=== PATIENT | female | born 1995 | race Caucasian/White ===

== ENCOUNTER 2017-04-16 04:35 | Emergency (ER) | payer OTHER ==
[~2017-04-16] VITALS: Ht 177.8 cm; Wt 68.0 kg
[2017-04-16] MEDS ORDERED: PERCOCET 5MG/325MG TAB PO ONE (05:00)
[2017-04-16] MEDS ORDERED: IBUP80TA PO (06:02)
[2017-04-16 06:07] VITALS: BP 131/86
--- NOTE | 2017-04-16 06:44 | REP ---
Clinical: Trauma. Technique: AP and lateral views of the right forearm. Findings: Lateral view suggests elevation to the anterior and posterior fat pads at the elbow which may reflect occult injury. Correlation with mechanism of injury and point of maximal tenderness is recommended and complete elbow series should be considered if necessary. Remainder examination appears normal. Impression: 1. Elevation to the fat pads at the elbow suggests occult injury and may warrant complete elbow series for further investigation. 2. No other fracture or dislocation identified. Signed by Carson Nevarez MD 04/16/2017 06:35 A
== END 2017-04-16 06:55 | disposition home or self-care (01) ==
LOC: M ED 04:35
DX: S50.01XA Contusion of right elbow, initial encounter (principal); W19.XXXA Unspecified fall, initial encounter; Y92.099 Unspecified place in other non-institutional residence as the place of occurrence of the external cause; Y93.89 Activity, other specified; Y99.8 Other external cause status

== ENCOUNTER → 2017-08-01 | Outpatient (CLI) | payer OTHER ==
[~2017-08-01] MED LIST: IBUP80TA PO
[2017-08-01 19:59] LABS: BASO % 0.2 % (0.0-1.0); EOS # 0.1 10^3/uL (0.0-0.50); EOS % 1.5 % (0.0-3.0); IMMATURE GRANULOCYTE % 0.1 % (0-0); LYMPH # 1.6 10^3/uL (1.5-6.5); MEAN CORPUSCULAR HEMOGLOBIN 30.1 pg (27.0-33.0); MEAN CORPUSCULAR HGB CONC 33.1 g/dl (32.0-36.5); MONO # 0.6 10^3/uL (0.0-0.8); MONO % 6.9 % (0.0-5.0); NEUTROPHILS # 5.7 10^3/uL (1.8-7.7); NEUTROPHILS % 71.3 % (36.0-66.0); PLATELET COUNT, AUTOMATED 280 10^3/uL (150-450); RED CELL DISTRIBUTION WIDTH 12.3 % (11.5-14.5)
[2017-08-03 11:53] LABS: HBsAg Prenatal NEGATIVE (NEGATIVE)
== END ==
LOC: M SMT 11:33
PROVIDERS: ATTEND Obstetrics & Gynecology
DX: Z34.81 Encounter for supervision of other normal pregnancy, first trimester (principal); Z3A.11 11 weeks gestation of pregnancy

== ENCOUNTER → 2017-09-21 | Outpatient (CLI) | payer OTHER ==
--- NOTE | 2017-09-21 17:55 | REP ---
Obstetric ultrasound for anatomy: There is a single intrauterine gestation in a vertex presentation. There is movement and cardiac activity, the heart rate is 147 beats per minute. The placenta is anterior without previa or abruptio. The placenta demonstrates grade zero maturity. The amniotic fluid volume subjectively is normal. The cervix is 4. 3 cm in length. By the ultrasound today gestational age is 19 weeks 0 days with an STEF of 02/15/2018. The LMP is unknown. weight is 299 grams (0 pounds, 10 ounces). This is the 59th percentile for 19 weeks 0 days. The the following anatomic structures are identified and unremarkable: Intracranial lateral ventricles, choroid plexus, cisterna magna, cerebellum, lungs, cardiac left ventricular outflow tract, diaphragm, stomach, cord insertion, three-vessel cord, kidneys, bladder, spine and upper lower extremities. Suboptimally demonstrated are the facial features, four-chamber heart, cardiac right ventricular outflow tract. A followup study dedicated to these structures might be considered. Otherwise, there are no anomalies. Half half Signed by Kenyon Cruz MD 09/21/2017 05:47 P
== END ==
LOC: M SMT 12:41
PROVIDERS: ATTEND Obstetrics & Gynecology
DX: Z34.82 Encounter for supervision of other normal pregnancy, second trimester (principal)

== ENCOUNTER → 2017-10-10 | Outpatient (CLI) | payer OTHER ==
--- NOTE | 2017-10-10 15:04 | REP ---
Clinical: Anatomical evaluation. Comparison: 09/21/2017 . Findings: Examination demonstrates a single live intrauterine in breech presentation. motion is identified by technologist. Placenta is noted anteriorly and grade one without evidence for placenta previa or abruption. Amniotic fluid volume is normal. Cervix measures 4.9 cm in length and appears closed. No evidence for nuchal cord. Gestational age by first US 21 weeks 5 days with STEF 02/15/2018 . Gestational age by current measurements 21 weeks 4 days with STEF 02/16/2018 . FHR equals 144 beats per minute. Estimated weight 468 grams ( 53rd percentile). Anatomical assessment demonstrates normal structures including cranium, choroid plexus, cavum, cerebellum/posterior fossa, facial features, lungs, four-chamber heart/ventricular outflow tracts, diaphragm, stomach, cord insertion/three-vessel cord, kidneys/bladder, spine, and extremities. Impression: Single live intrauterine in breech presentation demonstrating appropriate interval growth. In conjunction with prior examination anatomical assessment is complete and normal. No gross abnormalities are identified. Signed by Carson Nevarez MD 10/10/2017 02:56 P
== END ==
LOC: M SMT 13:38
PROVIDERS: ATTEND Obstetrics & Gynecology
DX: Z34.82 Encounter for supervision of other normal pregnancy, second trimester (principal); Z3A.21 21 weeks gestation of pregnancy

== ENCOUNTER → 2017-11-26 | Outpatient (CLI) | payer OTHER ==
[2017-11-26 14:13] LABS: HEMATOCRIT 38.6 % (36.0-47.0); MEAN CORPUSCULAR HGB CONC 33.7 g/dl (32.0-36.5); MEAN CORPUSCULAR VOLUME 91.9 fl (80.0-96.0); PLATELET COUNT, AUTOMATED 238 10^3/uL (150-450); RED CELL DISTRIBUTION WIDTH 13.2 % (11.5-14.5); WHITE BLOOD COUNT 9.9 10^3/uL (4.0-10.0)
[2017-11-26 14:33] LABS: GLUCOSE CHALLENGE TEST 1 HOUR 117 MG/DL (LESS THAN 140)
== END ==
LOC: M SMT 09:57
DX: Z36.9 Encounter for antenatal screening, unspecified (principal)
CPT/HCPCS: 82950

== ENCOUNTER → 2018-12-10 | Outpatient (CLI) | payer OTHER ==
[~2018-12-10] MED LIST changes: +COLA100C5 PO; +IBUP-1114 PO; +MAPA500T2 PO; +MOM30SS PO; +PRENTAB9 PO
--- NOTE | 2018-12-10 11:19 | REP ---
Clinical: Twin gestation. Comparison: None available . Findings: Examination demonstrates diamniotic monochorionic twin gestation. Placenta identified in the left lateral fundal and grade II. Cervix measures 3.3 cm in length and appears closed. Gestational age by LMP at 32 weeks 5 days with estimated date of delivery 01/30/2019. TWIN A: Twin A identified in cephalic presentation along the midline. motion is appreciated. Amniotic fluid volume is normal and the deepest pocket measures 3.1 cm. FHR equals 163 beats per minute. BPD 8.0 cm 31 weeks 6 days HC 29.7 cm 32 weeks 6 days AC 25.2 cm 29 weeks 3 days (less than 5th percentile) FL 5.7 cm 30 weeks 0 days HL 5.1 cm 29 weeks 6 days (less than 5th percentile) HC/AC ratio 1.18 Gestational age by current measurements: 30 weeks 6 days . Estimated weight 1514 grams ( less than 3rd percentile). Limited anatomical assessment without obvious abnormality. Umbilical cord SD ratio 3.15 ------- TWIN B: Twin B identified in cephalic presentation along the maternal left side. motion is appreciated. Amniotic fluid volume is normal and the deepest pocket measures 3.9 cm. FHR equals 150 beats per minute. BPD 8.0 cm 32 weeks 1 day HC 29.5 cm 32 weeks 4 days AC 27.4 cm 31 weeks 4 days FL 6.0 cm 31 weeks 1 day HL 5.3 cm 30 weeks 6 days HC/AC ratio 1.07 Gestational age by current measurements: 31 weeks 4 days. Estimated weight 1788 grams ( 22nd percentile). Limited anatomical assessment without obvious abnormality. Umbilical cord SD ratio 2.26 Impression: Diamniotic monochorionic twin gestation demonstrating discordant growth with twin A measuring at less than 3rd percentile and 2 weeks behind twin B. Electronically Signed by Carson Nevarez MD 12/10/2018 11:11 A
== END ==
LOC: M RAD 09:29
PROVIDERS: ATTEND Obstetrics & Gynecology
DX: O30.033 Twin pregnancy, monochorionic/diamniotic, third trimester (principal); O36.5931 Maternal care for other known or suspected poor fetal growth, third trimester, fetus 1; Z3A.30 30 weeks gestation of pregnancy; Z3A.31 31 weeks gestation of pregnancy

== ENCOUNTER 2019-01-07 02:02 | Inpatient (IN) | payer OTHER ==
[~2019-01-07] VITALS: Ht 175.3 cm; Wt 101.6 kg
[2019-01-07] VITALS (28 sets, daily range): BP systolic 81–201; BP diastolic 50–108
[2019-01-07] MEDS ORDERED: LR 1,000 ML IV SCH (03:30)
[2019-01-07] MEDS ORDERED: LACTATED RINGER'S 1000 ML IV STA (03:30)
[2019-01-07] MEDS ORDERED: BETAMETHASONE SOLUSPAN 6MG/ML INJ 5ML (J0702) IM SCH (03:45)
--- NOTE | 2019-01-07 03:51 | HPEPDOC ---
Obstetrical History & Physical General Date of Admission Jan 07, 2019 at 03:11 History of Present Illness 23 yo at 36+5 weeks gestation by 15+0 week US on 08Aug2018 with mono/di twins presents to L&D with the complaint of a large gush of fluid at ~0130 followed by continuous leakage ever since. Fluid was clear. She denies any vaginal bleeding. She endorses intermittent contractions and excellent movement. She was scheduled for an IOL vs PLTCS today depending of presentation. Chief Complaint: LOF, pre-term Information Provided By: Patient Age: 23 : 2 Term: 1 Pre-term: 0 Abortions: 0 Livin Care Care: Good Care Dating Final EDC: Jan 30, 2019 Final EDC for Daily Update: Jan 30, 2019 Final EDC by: 2nd trimester (US) (15+0 week US on 08Aug2018 set STEF of 30Jan2019) Antepartum Course Diagnos(e)s [place]/Di twins short interval (has child less than 1 year old) Past Medical History Past Obstetrical History : Past Obstetrical History: Multigravida Type of Delivery: Spontaneous Vaginal Del. ( in 2018 of 8 lb ) Complications: No SHIPYARD HELPER History: No pertinent history Past Medical History Medical History Denies Surgical History: Other (Elbow surgery (screws inserted)) Family History Significant Family History: No pertinent family hx Social History Marital Status: Family situation: Spouse/partner home Psychosocial History: No pertinent psych hx * Smoker: non-smoker Alcohol: Denies Drugs: denies Imunizations Tdap status: current Influenza Status: needs Allergies Coded Allergies: No Known Allergies (Unverified , 12/31/18) Medications Scheduled Multivitamins/ ( 27-0.8 mg) 1 Tab Tab, 1 TAB PO DAILY Scheduled PRN Docusate Sodium (Colace) 100 Mg Cap, 100 MG PO QHSP PRN for CONSTIPATION Physical Examination Physical Examination Chaperoned by L&D RN GENERAL: Alert and oriented times three. ABDOMEN: Gravid and non-tender to touch. FETUS: Is vertex (VTX) by sterile vaginal examination (SVE) EXTREMITIES: No edema. Pelvic - Grossly ruptured membranes, clear fluid Bedside TAUS - Twin gestation. Baby A cephalic presentation. Baby B cephalic presentation. Laboratory Data 24H LABS Laboratory Tests 2 01/07/19 03:14: Serology Scanned Report Hepatitis B Testing Urine Culture: No Growth Pertinent Laboratoy Data Blood Type: A+ RBC Antibody Screen: Negative HIV: Negative Hepatitis B: Negative Hepatitis C: Unknown Rapid Plasma Reagin: Nonreactive Rubella: Immune Varicella: Unknown Chlamydia/Gonorrhea: Negative Group B Streptococcus: Negative Quad Screen Test: Unknown Cystic Fibrosis: Unknown Glucose Tolerance Test: 98 Anatomy Ultrasound Placenta Location: Anterior Normal Anatomy: Yes ([place]/Di twins) Placenta Previa: No Other Ultrasounds 03Jan2019: [place]/Di twins. Baby A cephalic with EFW 2238 grams (12th percentile) Baby B cephalic with EFW 2480 grams (25th percentile) Anterior placenta Steroid Therapy Steroid Therapy: No Vaginal Examination Dilation: 2cm Effacement: 80% Station: -2 Cervical Consistency: Soft Cervical Position: Posterior Presentation: Cephalic presentation Position: Vertex (occiput) Assessment Heart Rate (FHR): 140 (Baby A 145, Baby B 140) Variability: Moderate Accelerations: Positive Decelerations: None Tocometer Contractions: Yes Frequency: irregular Duration: less than 60 seconds Strength: palpated as mild Assessment/Plan Assessment 23 yo at 36+5 weeks with mono/di twins presented to L&D with grossly ruptured membranes. Plan Admit for expectant management of labor. Will augment as clinically indicated. Apply IV fluids. Cephalic presentation for both Baby A and Baby B on admission US. Good candidate for vaginal delivery. GBS negative. Will give dose of BTMZ. Patient may have epidural if desired. Delivery will occur in the OR. Counseled patient on possibility of emergent section on one or both infants pending positional changes or distress. All patient questions answered. Oscar Bethea, DO Labor and Delivery Counseling /VAVD/FAVD counseling Deliver your babies through the vagina with possible assistance of forceps or vacuum device if needed for maternal or indications. Forceps and vacuum are devices that can assist with vaginal delivery when normal pushing efforts cannot achieve delivery on their own or when delivery is needed in an emergency for baby's well-being. Medications may be required to induce or augment (help) your labor in order to achieve a vaginal delivery. An episiotomy may be required to help your babies to deliver vaginally. You may also require repair of any lacerations or tears of your vagina or vulva that are caused by delivery. In some cases, emergencies can occur that require an emergency section delivery so quickly that there may not be enough time to stop and complete consent forms for section. Understand that if this occurs, your providers will discuss the need for a section with you before they proceed with surgery. section is the delivery of your babies through an incision in your abdomen. In some situations, section may be safer to mom and baby than continuing labor and is only performed when clinically indicated. Risks of vaginal delivery include but are not limited to: Bleeding, infection, injury to the vagina, pelvic structures, injury to baby, damage to the uterus, reactions to anesthesia, uterine rupture, risk of hysterectomy for life threatening bleeding, or . Medications used to induce or augment labor may increase your risk for infection, uterine tachysystole, uterine rupture, heart rate abnormalities, need for emergency delivery or possible hysterectomy, and hemorrhage. Additional risks for use of forceps and vacuum include: increased risk of perineal and vaginal lacerations, risk of urinary or bowel incontinence, increased risk of injury to baby with bruising, scratches, hematomas on the head, or intracranial bleeding. Ms. Abreu verbalized understanding of these risks and elected to proceed. She also consents to a blood transfusion should it be required. DO DAVID Hamlin CHRISTOPHER J. DO Jan 07, 2019 03:51
[2019-01-07 04:28] LABS: HEMATOCRIT 36.4 % (36.0-47.0); HEMOGLOBIN 12.1 g/dl (12.0-15.5); MEAN CORPUSCULAR HEMOGLOBIN 28.9 pg (27.0-33.0); MEAN CORPUSCULAR HGB CONC 33.2 g/dl (32.0-36.5); MEAN CORPUSCULAR VOLUME 87.1 fl (80.0-96.0); PLATELET COUNT, AUTOMATED 236 10^3/uL (150-450); RED BLOOD COUNT 4.18 10^6/uL (4.00-5.40); WHITE BLOOD COUNT 12.3 10^3/uL (4.0-10.0)
[2019-01-07] MEDS ORDERED: FENTANYL 2MCG/ML ROPIVACAINE 0.2% IN 0.9% NACL 100ML IVBAG As Ordered ONE (04:50)
--- NOTE | 2019-01-07 05:17 | IPNPDOC ---
Text Note Date of Service The patient was seen on 01/07/19. NOTE Patient feeling significantly more pain and pressure. Cervix: 490/-1. Some difficulty tracing both babies on monitor. Bedside TAUS revealed baby A with FHR in 160s and Baby B with FHR 140s. Patient desires epidural. Anesthesia notified. OR setup for delivery as Ms. Abreu is progressing quickly. Safe to proceed. DO [place] VS,[place], I+O VS, [place], I+O Laboratory Tests 01/07/19 03:09 Red Blood Count 4.18, Mean Corpuscular Volume 87.1, Mean Corpuscular Hemoglobin 28.9, Mean Corpuscular Hemoglobin Concent 33.2, Red Cell Distribution Width 13.2 Vital Signs Date Time Temp Pulse Resp B/P (MAP) Pulse Ox O2 Delivery O2 Flow Rate FiO2 01/07/19 05:08 98.5 113 20 128/82 (97) ANNA HERNANDEZ DO Jan 07, 2019 05:17
[2019-01-07] MEDS ORDERED: OXYTOCIN DRIP 30 UNITS in APPROPRIATE DILUENT 1 EA IV SCH (07:20)
[2019-01-07] MEDS ORDERED: MEASLES,MUMPS,RUBELLA VACCINE INJ (MMR-II) (90707) SC SCH (07:30)
[2019-01-07] MEDS ORDERED: METHYLERGONOVINE MALEATE 0.2 MG/ML VIAL (J2210) IM ONE (07:30)
[2019-01-07] MEDS ORDERED: ONDANSETRON 4MG/2ML VIAL (J2405) IV PRN ×2 (07:30→08:15)
[2019-01-07] MEDS ORDERED: DIBUCAINE 1% OINTMENT 30GM TOP PRN (07:30)
[2019-01-07] MEDS ORDERED: DOCUSATE SODIUM 100 MG CAP PO PRN (07:30)
[2019-01-07] MEDS ORDERED: RHOGAM 300 MCG (1500 IU) INJ (J2790) IM SCH (07:30)
--- NOTE | 2019-01-07 07:43 | DNPDOC ---
[facility] Delivery Note Delivery Note DATE OF DELIVERY: 07Jan2019, Baby A at 0639, Baby B at 0654 PREDELIVERY DIAGNOSIS: 36+5 weeks' gestation and labor with mono/di twins POST DELIVERY DIAGNOSIS: Delivered. PROCEDURE: Spontaneous vaginal delivery X2 of mono/di twins. CREDIT REVIEW OFFICER: Dr. Bethea ANESTHESIA: Epidural. ESTIMATED BLOOD LOSS: 300 mL. FINDINGS: Baby A - 5 pound, 0 ounce female , Score 9/9. Baby B - weight pending, score 8/9, nuchal cord X1. DELIVERY SUMMARY: Presented to room for assessment after epidural placement. Ms. Abreu was comfortable but was feeling constant vaginal pressure. Cervix AL/C/+1. She was taken to the OR for delivery. NICU and anesthesia were notified and the team was assembled. She was placed on the OR table with her feet up in stirrups. She was then prepped for delivery. Cervical exam revealed C/C/+2. With excellent pushing effort Baby A delivered. Presentation was SUSANA with restitution to LOT. The right anterior shoulder delivered with gentle guidance followed easily by the remainder of the body. The infant was dried and stimulated on the field and a bulb suction was used. The infant cried vigorously. I then cut the three vessel umbilical cord and handed the infant to the care of the awaiting baby nurse team. The FHR was determined on Baby B to be in the 140s and there was moderate variab ility. Cervical exam was C/C/0. There was a bulging bag of water. AROM was performed productive of a copious amount of clear fluid. She began pushing again. She pushed very well. Over 5 sets of contractions her delivered. Presentation was RENATO with restitution to ROT. The left anterior shoulder delivered with gentle guidance followed easily by the remainder of the body. There was a nuchal cord that was delivered through and reduced manually. The infant was dried and stimulated on the field and cried spontaneously. I then clamped and cut the three vessel cord and handed over the to the awaiting baby nurse team. 3rd stage was completed with gentle traction on the cord and it was productive of an intact, fused appearing placenta. The uterus was initially boggy and required an aggressive bimanual massage to become firm. 0.2mg IM methergine was then administered. A uterine sweep was then performed which expelled numerous clots. The bladder was then drained of ~300ml of urine with a straight cath. The fundus then become firm and bleeding slowed considerably. Inspection of the vagina, perineum, and cervix revealed no lacerations. Sponge, instrument, and needle counts were correct X2. Mother stable when I left the room. DO DAVID Hamlin CHRISTOPHER J. DO Jan 07, 2019 07:43
[2019-01-07 07:59] LABS: CORD GAS ABE A -6.3; CORD GAS HCO3 A 23.9 MEQ/L; CORD GAS O2 SAT A 62.4 %; CORD GAS PH A 7.171 UNITS; CORD GAS PO2 A 32.3 mmHg; CORD GAS SBC A 18.6 MEQ/L
[2019-01-07 08:00] LABS: CORD GAS ABE V -5.9; CORD GAS HCO3 V 20.8 MEQ/L; CORD GAS O2 SAT V 61.8 %; CORD GAS PCO2 V 44.9 mmHg; CORD GAS PH V 7.283 UNITS; CORD GAS PO2 V 28.7 mmHg; CORD GAS SBC V 18.8 MEQ/L; CORD GAS TCO2 V 22.1 MEQ/L
[2019-01-07] MEDS ORDERED: diphenhydrAMINE INJ 50MG/ML VIAL (J1200) IV PRN (08:15)
[2019-01-07] MEDS ORDERED: EPIDURAL COMMENT XX SCH (08:15)
[2019-01-07] MEDS ORDERED: LACTATED RINGER'S 1000 ML IV PRN (08:15)
[2019-01-07] MEDS ORDERED: ePHEDrine SULFATE 25 MG/5 ML(5MG/ML) SYRINGE IV PRN (08:15)
[2019-01-07] MEDS ORDERED: FENTANYL/ROPIVACAINE/NACL BAG 100 ML EPIDURAL SCH (08:15)
[2019-01-07] MEDS ORDERED: EPIDURAL/PCA KEYS XX PRN (08:15)
[2019-01-07] MEDS ORDERED: REFRIGERATOR IV KEYS XX PRN (08:15)
[2019-01-07] MEDS ORDERED: NALOXONE INJ 0.4 MG/1 ML VIAL (J2310) IV PRN (08:15)
[2019-01-07] MEDS: PRENATAL VITAMINS CHEWABLE TABLET PO SCH (09:00)
[2019-01-07] MEDS: IBUPROFEN 800 MG TAB PO PRN ×2 (12:19→22:47)
[2019-01-07] MEDS: ACETAMINOPHEN 500 MG TAB PO PRN (13:23)
[2019-01-08] MEDS: ACETAMINOPHEN 500 MG TAB PO PRN ×2 (04:00→20:46)
[2019-01-08 06:44] VITALS: BP 126/81
[2019-01-08] MEDS: PRENATAL VITAMINS CHEWABLE TABLET PO SCH (09:02)
--- NOTE | 2019-01-08 14:19 | IPN ---
DATE: 01/08/2019 23-year-old, 2m now para 3 admitted at 36 of 5 weeks with spontaneous labor with monochorionic diamniotic twins. She had a spontaneous vaginal delivery times two of monochorionic diamniotic twins. Twin A was female 5 pounds, 2070 grams, of 9 and 9 at one and five minutes respectively. Twin B was female 6 pounds 1 ounce, 2750 grams, of 8 and 9 at one and five minutes respectively. She had an epidural in place. On her first day we discussed phlebitis, cystitis, mastitis, endometritis, cellulitis, diet, excise pain management, perineal, breast and wound care. Blood pressure 125/71, respirations 70, pulse 66, temperature is 97.4. Admitting hemoglobin 12.1, hematocrit 36.4 and platelets were 236. In summary we have a 36 and 5 in active labor, delivered spontaneously monochorionic diamniotic twins, uncomplicated.
[2019-01-08] MEDS: IBUPROFEN 800 MG TAB PO PRN (16:18)
[2019-01-08 18:00] VITALS: BP 126/82
[2019-01-09 06:00] VITALS: BP 143/83
--- NOTE | 2019-01-09 07:12 | IPNPDOC ---
Progress Note Date of Service: Jan 09, 2019 Day#: 2 Progress Note PPD 2 SUBJECT: Magui Baldwin is a 23yo [id number] s/p uncomplicated of mono-di twins at 36w5d on 01/07/19, doing well day # 2. She has been ambulating, voiding spontaneously without issue and tolerating regular diet. Breast pumping without issue. Reports lochia is like a normal period. No f/c/n/v/CP/SOB. OBJECTIVE: VITAL SIGNS: Within normal limits, afebrile. Alert and oriented times three. Abdomen: Fundus firm at U-2. Soft, NTTP. ASSESSMENT: Magui Baldwin is a 23yo [id number] s/p uncomplicated of mono-di twins at 36w5d on 01/07/19, doing well day # 2. Vitals within normal limits, afebrile, hemodynamically stable with no evidence of infection. PLAN: 1. Discharge to home today. 2. Tylenol and Motrin for pain. 3. Encourage breast feeding and ambulation. 4. Interested in minipill, will discuss again at PP visit, advised 6wk vaginal rest but if she has intercourse prior, use of condoms 5. Routine PP visit in 6 weeks in clinic. 6. Discussed return precautions at length. Dr. Geri Frey MD VS, I&O, 24H, Fishbone Vital Signs/I&O Vital Signs Date Time Temp Pulse Resp B/P (MAP) Pulse Ox O2 Delivery O2 Flow Rate FiO2 01/09/19 06:00 97.9 73 18 143/83 (103) 01/08/19 18:00 98 Geri Frey MD Jan 09, 2019 07:12
[2019-01-09] MEDS: PRENATAL VITAMINS CHEWABLE TABLET PO SCH (09:14)
[2019-01-09] MEDS ORDERED: DIBU10OI TOP (10:31)
[2019-01-09] MEDS ORDERED: APAP500T10 PO (10:33)
[2019-01-09] MEDS ORDERED: IBUP-359 PO (10:34)
== END 2019-01-09 11:40 | disposition home or self-care (01) | DRG 807 ==
LOC: M LDO 02:02 → M LDI 03:11 → M OBS 11:55
PROVIDERS: ADMIT Obstetrics & Gynecology; ATTEND Obstetrics & Gynecology
PROC: 10E0XZZ Delivery of Products of Conception, External Approach (ICD-10-PCS; principal; 2019-01-07)
PROC: 10907ZC Drainage of Amniotic Fluid, Therapeutic from Products of Conception, Via Natural or Artificial Opening (ICD-10-PCS; 2019-01-07)
DX: O30.033 Twin pregnancy, monochorionic/diamniotic, third trimester (principal); Z37.2 Twins, both liveborn; Z3A.36 36 weeks gestation of pregnancy; O69.81X2 Labor and delivery complicated by cord around neck, without compression, fetus 2; O75.89 Other specified complications of labor and delivery

== ENCOUNTER → 2021-03-15 | Outpatient (CLI) | payer OTHER ==
[~2021-03-15] MED LIST changes: +APAP500T10 PO; +DIBU28OI2 TOP; +IBUP-359 PO
--- NOTE | 2021-03-15 08:54 | REP ---
INDICATION: LT BREAST PAIN X SEVERAL MONTHS. COMPARISON: None TECHNIQUE: Multiple ultrasonographic images of the left breast retroareolar region were obtained over the area where the patient complains of focal pain. FINDINGS: There are no cystic or solid masses. IMPRESSION: ACR category 2 benign focal left breast ultrasound exam as described above. There is no evidence of malignant alteration. A negative ultrasound exam should never curtail biopsy of a clinically palpable mass or clinically suspicious area of the breast. <Electronically signed by Yossi Khan > 03/15/21 [id number]
== END ==
LOC: M WHC 06:43
PROVIDERS: ATTEND Family Medicine
DX: N64.4 Mastodynia (principal)

== ENCOUNTER → 2021-06-16 | Outpatient (CLI) | payer OTHER ==
--- NOTE | 2021-06-16 15:41 | REP ---
INDICATION: DIAG R BREAST LUMP; RIGHT BREAST LUMP. Tenderness with movement. COMPARISON: No comparison right breast imaging. TECHNIQUE: A skin marker is affixed to the skin at the site of the palpable abnormality and a routine views are augmented by 3D tomography and magnified focal spot-compression images. Targeted right breast sonography is performed. This mammogram was interpreted with the aid of an FDA-approved computer-aided detection system. FINDINGS: The breast parenchyma is predominantly fat replaced. There is no mammographic evidence of right breast mass lesion. No architectural distortion or worrisome skin changes seen. No microcalcification is observed. The Volpara volumetric breast density pattern is a. Targeted ultrasound: Targeted right breast sonography is performed the site of the palpable lump at the 12 o'clock position. A lobule of hyperechoic fat is seen just beneath the dermis at the site of the palpable lump. There is a cystic area within this. Overall, this hyperechoic area measures 1.8 x 1.1 x 1.8 cm. It is located 4.5 cm from the nipple. IMPRESSION: BIRADS/ACR category 3 probably benign right breast mammographic and sonographic findings. Combination of mammographic and sonographic findings are felt to be most compatible with a small area of fat necrosis or inflamed subcutaneous fat. This patient's Tyrer-Cuzick lifetime breast cancer risk assessment score is 10.2%. RECOMMENDATION: Follow-up right breast ultrasound in 6 months time. Sooner, if clinical signs and symptoms progress. The patient letter being requested is M 3. <Electronically signed by Maninder Rodríguez > 06/16/21 [id number]
== END ==
LOC: M WHC 13:56
PROVIDERS: ATTEND Family Medicine
DX: Z12.31 Encounter for screening mammogram for malignant neoplasm of breast (principal)

== ENCOUNTER → 2022-11-30 | Outpatient (REF) | payer OTHER | LOC: M SFHCDERM 12:27 | PROVIDERS: ATTEND Nurse Practitioner Family | DX: D23.5 Other benign neoplasm of skin of trunk (principal) ==

== ENCOUNTER → 2022-12-28 | Outpatient (CLI) | payer OTHER | LOC: M RAD 08:55 | PROVIDERS: ATTEND Nurse Practitioner Family | DX: R07.9 Chest pain, unspecified (principal); M25.662 Stiffness of left knee, not elsewhere classified ==

== ENCOUNTER → 2023-01-15 | Outpatient (REF) | payer OTHER ==
[2023-01-15 18:35] LABS: TOTAL 25(OH) VITAMIN D 21.3 NG/ML (20.0-100.0)
[2023-01-15 18:37] LABS: ALBUMIN 3.9 G/DL (3.2-5.2); ALKALINE PHOSPHATASE 83 U/L (46-116); ALT/SGPT 20 U/L (7.0-40); AST/SGOT < 8 U/L (<34); BILIRUBIN,TOTAL 0.3 MG/DL (0.3-1.2); BLOOD UREA NITROGEN 9 MG/DL (9-23); CALCIUM LEVEL 9.1 MG/DL (8.5-10.1); CARBON DIOXIDE LEVEL 27 MMOL/L (20-31); CHLORIDE LEVEL 109 MMOL/L (98-107); CHOLESTEROL LEVEL 135 MG/DL (<200); CHOLESTEROL RISK RATIO 3.12 (<5); CREATININE FOR GFR 0.59 MG/DL (0.55-1.30); GLOMERULAR FILTRATION RATE > 60.0 (>60); GLUCOSE, FASTING 111 MG/DL (60-100); HDL CHOLESTEROL 43.2 MG/DL (>40); NON-HDL-C 91.8 MG/DL; POTASSIUM SERUM 4.1 MMOL/L (3.5-5.1); SODIUM LEVEL 142 MMOL/L (136-145); TOTAL PROTEIN 6.2 G/DL (5.7-8.2); TRIGLYCERIDES LEVEL 139 MG/DL (<150)
[2023-01-15 18:40] LABS: BASO % 0.4 % (0.0-1.0); EOS # 0.2 10^3/uL (0.0-0.5); HEMATOCRIT 43.4 % (36.0-47.0); HEMOGLOBIN 14.2 g/dl (12.0-15.5); LYMPH # 2.3 10^3/uL (1.5-5.0); LYMPH % 31.3 % (24.0-44.0); MEAN CORPUSCULAR HEMOGLOBIN 29.2 pg (27.0-33.0); MEAN CORPUSCULAR HGB CONC 32.7 g/dl (32.0-36.5); MEAN CORPUSCULAR VOLUME 89.1 fl (80.0-96.0); MONO # 0.6 10^3/uL (0.0-0.8); MONO % 8.4 % (2.0-8.0); NEUTROPHILS # 4.1 10^3/uL (1.5-8.5); NEUTROPHILS % 56.6 % (36.0-66.0); PLATELET COUNT, AUTOMATED 346 10^3/uL (150-450); RED BLOOD COUNT 4.87 10^6/uL (4.00-5.40); WHITE BLOOD COUNT 7.3 10^3/uL (4.0-10.0)
== END ==
LOC: M LAB REF 16:21
PROVIDERS: ATTEND Nurse Practitioner Family
DX: Z13.228 Encounter for screening for other metabolic disorders (principal)

== ENCOUNTER → 2023-05-28 | Outpatient (REF) | payer MEDICAID | LOC: M LAB REF 10:19 | PROVIDERS: ATTEND Internal Medicine Gastroenterology | DX: R19.4 Change in bowel habit (principal) ==

== ENCOUNTER → 2023-05-28 | Outpatient (CLI) | payer MEDICAID, MEDICARE, OTHER ==
[2023-05-28 10:07] LABS: IMMUNOGLOBULIN A 163.9 MG/DL (40-350)
[2023-05-28 10:08] LABS: FREE T4 1.31 NG/DL (0.89-1.76)
[2023-05-28 10:09] LABS: THYROID STIMULATING HORMONE 0.964 uIU/ML (0.55-4.78)
== END ==
LOC: M LAB 09:08
PROVIDERS: ATTEND Internal Medicine Gastroenterology
DX: R19.4 Change in bowel habit (principal)

== ENCOUNTER → 2024-01-08 | Outpatient (CLI) | payer OTHER ==
[~2024-01-08] MED LIST changes: +CAMILA PO
== END ==
LOC: M PLAIMG 10:44
PROVIDERS: ATTEND Psychiatry & Neurology Neurology
DX: G43.119 Migraine with aura, intractable, without status migrainosus (principal)

== ENCOUNTER → 2024-02-25 | Outpatient (REF) | payer OTHER ==
[2024-02-25 13:10] LABS: BASO # 0.1 10^3/uL (0.0-0.2); BASO % 0.6 % (0.0-1.0); EOS # 0.3 10^3/uL (0.0-0.5); EOS % 3.3 % (0.0-3.0); HEMATOCRIT 43.3 % (36.0-47.0); HEMOGLOBIN 14.8 g/dl (12.0-15.5); LYMPH # 2.4 10^3/uL (1.5-5.0); LYMPH % 29.5 % (24.0-44.0); MEAN CORPUSCULAR HEMOGLOBIN 30.9 pg (27.0-33.0); MEAN CORPUSCULAR HGB CONC 34.2 g/dl (32.0-36.5); MEAN CORPUSCULAR VOLUME 90.4 fl (80.0-96.0); MONO # 0.6 10^3/uL (0.0-0.8); NEUTROPHILS # 4.7 10^3/uL (1.5-8.5); NEUTROPHILS % 59.2 % (36.0-66.0); PLATELET COUNT, AUTOMATED 339 10^3/uL (150-450); RED BLOOD COUNT 4.79 10^6/uL (4.00-5.40)
[2024-02-25 13:27] LABS: HEMOGLOBIN A1c 4.9 % (4.0-6.0)
[2024-02-25 13:38] LABS: THYROID STIMULATING HORMONE 1.783 uIU/ML (0.55-4.78); TOTAL 25(OH) VITAMIN D 21.4 NG/ML (20.0-100.0)
[2024-02-25 13:42] LABS: ALBUMIN 3.9 G/DL (3.2-5.2); ALKALINE PHOSPHATASE 75 U/L (46-116); ALT/SGPT 25 U/L (7.0-40); AST/SGOT 13 U/L (<34); BILIRUBIN,TOTAL 0.6 MG/DL (0.3-1.2); BLOOD UREA NITROGEN 14 MG/DL (9-23); CALCIUM LEVEL 9.1 MG/DL (8.5-10.1); CARBON DIOXIDE LEVEL 27 MMOL/L (20-31); CHLORIDE LEVEL 106 MMOL/L (98-107); CHOLESTEROL LEVEL 138 MG/DL (<200); CHOLESTEROL RISK RATIO 2.55 (<5); CREATININE FOR GFR 0.61 MG/DL (0.55-1.30); GLOMERULAR FILTRATION RATE > 60.0 (>60); GLUCOSE, FASTING 75 MG/DL (60-100); LDL CHOLESTEROL 70.2 MG/DL (<100); MAGNESIUM LEVEL 1.8 MG/DL (1.8-2.4); POTASSIUM SERUM 4.5 MMOL/L (3.5-5.1); SODIUM LEVEL 142 MMOL/L (136-145); TOTAL PROTEIN 6.3 G/DL (5.7-8.2); TRIGLYCERIDES LEVEL 69 MG/DL (<150)
== END ==
LOC: M LAB REF 11:30
PROVIDERS: ATTEND Nurse Practitioner Family
DX: E66.9 Obesity, unspecified (principal); E55.9 Vitamin D deficiency, unspecified

== ENCOUNTER → 2024-03-12 | Outpatient (REF) | payer OTHER | LOC: M SFHCWAGY 18:13 | PROVIDERS: ATTEND Nurse Practitioner Family | DX: Z12.4 Encounter for screening for malignant neoplasm of cervix (principal) ==

== ENCOUNTER → 2024-04-01 | Outpatient (CLI) | payer OTHER | LOC: M WHC 14:13 | PROVIDERS: ATTEND Nurse Practitioner Family | DX: N64.4 Mastodynia (principal) ==

== ENCOUNTER → 2024-04-29 | Outpatient (REF) | payer OTHER ==
[2024-04-29 21:13] LABS: URINE PREG TEST NEGATIVE (NEGATIVE)
[2024-04-29 21:14] LABS: APPEARANCE, URINE MANUAL TURBID (CLEAR); COLOR, URINE MANUAL YELLOW (YELLOW)
[2024-04-29 21:15] LABS: BILIRUBIN, URINE MANUAL NEGATIVE (NEGATIVE); BLOOD URINE MANUAL TRACE (NEGATIVE); GLUCOSE, URINE (UA) MANUAL NEGATIVE (NEGATIVE); KETONE, URINE MANUAL NEGATIVE (NEGATIVE); LEUKOCYTE ESTERASE, URINE MAN POSITIVE (NEGATIVE); NITRITE, URINE MANUAL NEGATIVE (NEGATIVE); PH,URINE MAN 7.5 UNITS (5.0 - 7.0); PROTEIN, URINE MANUAL NEGATIVE (NEGATIVE); UROBILINOGEN, URINE MANUAL NORMAL (NORMAL)
[2024-04-29 21:28] LABS: BACTERIA, URINE SMALL AMOUNT; RBC, URINE NONE SEEN /hpf (0-3); SQUAMOUS EPITHELIAL CELL URINE LARGE AMOUNT /hpf (SMALL AMT)
[2024-04-29 21:29] LABS: AMORPHOUS SEDIMENT, URINE LARGE AMOUNT (NEGATIVE); HYALINE CAST, URINE NONE SEEN /lpf (0-1); MUCUS, URINE SMALL AMOUNT (NEGATIVE)
[2024-04-29 23:00] LABS: Trichomonas vaginalis (AMP) NOT DETECTED (NEGATIVE)
[2024-04-29 23:24] LABS: GC DNA AMPLIFICATION NEGATIVE (NEGATIVE)
== END ==
LOC: M LAB REF 20:44
PROVIDERS: ATTEND Physician Assistant
DX: Z11.3 Encounter for screening for infections with a predominantly sexual mode of transmission (principal)

== ENCOUNTER → 2024-05-16 | Outpatient (REF) | payer OTHER ==
[2024-05-16 20:35] LABS: GC DNA AMPLIFICATION NEGATIVE (NEGATIVE)
== END ==
LOC: M LAB REF 16:20
PROVIDERS: ATTEND Physician Assistant
DX: Z20.2 Contact with and (suspected) exposure to infections with a predominantly sexual mode of transmission (principal)

== ENCOUNTER → 2024-05-30 | Outpatient (REF) | payer OTHER | LOC: M SFHCWAGY 17:07 | PROVIDERS: ATTEND Advanced Practice Midwife | DX: R87.610 Atypical squamous cells of undetermined significance on cytologic smear of cervix (ASC-US) (principal); R87.810 Cervical high risk human papillomavirus (HPV) DNA test positive ==

== ENCOUNTER → 2025-06-25 | Outpatient (CLI) | payer OTHER | LOC: M PLARAD 10:58 | PROVIDERS: ATTEND Physician Assistant | DX: M54.2 Cervicalgia (principal); M47.812 Spondylosis without myelopathy or radiculopathy, cervical region ==